=== PATIENT | male | born 1995 | race Caucasian/White ===

== ENCOUNTER 2017-02-04 08:32 | Emergency (ER) | payer OTHER ==
[~2017-02-04] VITALS: Ht 185.4 cm; Wt 70.3 kg
[2017-02-04] MEDS ORDERED: NS 1,000 ML IV SCH (08:49)
[2017-02-04] MEDS ORDERED: KETOROLAC 30 MG/ML VIAL (J1885) IV ONE (09:00)
[2017-02-04] MEDS ORDERED: NS 1,000 ML IV ONE (09:00)
[2017-02-04 09:27] LABS: BASO % 0.3 % (0.0-1.0); EOS # 0.2 K/mm3 (0.0-0.50); EOS % 1.6 % (0.0-3.0); LARGE UNSTAINED CELL # 0.1 K/mm3 (0.0-0.4); LYMPH # 1.3 K/mm3 (1.5-6.5); LYMPH % 10.3 % (24.0-44.0); MEAN CORPUSCULAR HEMOGLOBIN 29.3 pg (27.0-33.0); MEAN CORPUSCULAR HGB CONC 34.5 g/dl (32.0-36.5); MEAN CORPUSCULAR VOLUME 84.7 fl (80.0-96.0); MONO # 0.6 K/mm3 (0.0-0.8); NEUTROPHILS # 9.4 K/mm3 (1.8-7.7); NEUTROPHILS % 81.9 % (36.0-66.0); PLATELET COUNT, AUTOMATED 250 k/mm3 (150-450); RED CELL DISTRIBUTION WIDTH 12.3 % (11.5-14.5); WHITE BLOOD COUNT 11.5 K/mm3 (4.0-10.0)
[2017-02-04 10:00] LABS: ALBUMIN 3.9 GM/DL (3.2-5.2); ALKALINE PHOSPHATASE 93 U/L (45-117); ALT/SGPT 27 U/L (12-78); ANION GAP 13 MEQ/L (8-16); AST/SGOT 14 U/L (15-37); BILIRUBIN,DIRECT 0.1 MG/DL (0.0-0.2); BILIRUBIN,TOTAL 0.3 MG/DL (0.2-1.0); BLOOD UREA NITROGEN 15 MG/DL (7-18); CALCIUM LEVEL 8.5 MG/DL (8.5-10.1); CARBON DIOXIDE LEVEL 22 MEQ/L (21-32); CHLORIDE LEVEL 108 MEQ/L (98-107); CREATININE FOR GFR 1.21 MG/DL (0.70-1.30); GLUCOSE, FASTING 85 MG/DL (70-105); POTASSIUM SERUM 3.9 MEQ/L (3.5-5.1); SODIUM LEVEL 143 MEQ/L (136-145); TOTAL PROTEIN 6.9 GM/DL (6.4-8.2)
[2017-02-04 11:18] VITALS: BP 128/72
--- NOTE | 2017-02-04 11:22 | REP ---
ACUTE ABDOMINAL SERIES: 02/04/2017 CLINICAL HISTORY: No prior study, abdominal pain. FINDINGS: PA CHEST: Lungs are well inflated without infiltrate, effusion, atelectasis or mass. The heart, mediastinal and hilar contours are normal. Airway is intact. Bones unremarkable. No free air. FLAT UPRIGHT ABDOMEN: Scattered stool and gas in the colon without dilated loops, air-fluid levels, masses or free air. No abnormal calcifications. The bones are unremarkable. There is one pelvic phlebolith in the right deep pelvis. IMPRESSION: 1. PA chest with no acute cardiac pulmonary disease. 2. Negative for obstruction, mass, free air or other acute finding. Bowel gas pattern unremarkable. Bones intact. Signed by Enrike Bradley MD 02/04/2017 05:13 P
== END 2017-02-04 11:19 | disposition home or self-care (01) ==
LOC: M ED 08:54
DX: R10.9 Unspecified abdominal pain (principal)
CPT/HCPCS: 74022; 80048; 80076; 83690; 85025; 96361; 96374; 99282; J1885

== ENCOUNTER 2018-09-27 22:02 | Emergency (ER) | payer OTHER ==
[2018-09-27] MEDS: AUGMENTIN 875 MG TAB PO (23:24)
== END 2018-09-27 23:34 | disposition home or self-care (01) ==
LOC: M ED 22:02
DX: K08.89 Other specified disorders of teeth and supporting structures (principal); K02.9 Dental caries, unspecified
CPT/HCPCS: 99283

== ENCOUNTER → 2019-05-15 | Outpatient (CLI) | payer OTHER ==
[~2019-05-15] MED LIST: AUGM875T28 PO
--- NOTE | 2019-05-21 09:39 | SLEEPCENT ---
DATE OF PROCEDURE: 05/15/2019 ORDERED BY: Rocio Roach Nocturnal polysomnography was performed for evaluation of sleep physiology in this patient with difficulties in sleep continuity, excessive somnolence and nonrestorative sleep. 8 hours and 28 minutes of data were reviewed. There were 415 minutes of sleep identified. Sleep latency was normal at 9.5 minutes. Rapid eye movement (REM) latency was normal at 120 minutes. Sleep architecture was fairly good. Some mild fragmentation early in the study, but 5 REM cycles were noted. Overall sleep efficiency 83.2%. The electrocardiogram showed sinus rhythm with an average heart rate of 60 beats per minute. Rate ranged 40-92. Electroencephalogram (EEG) showed alpha intrusion throughout with no focal events. There were only 13 respiratory events identified of 10 seconds in duration or greater for an apnea-hypopnea index of 1.9. Some snoring was noted and the patient's respiratory related arousal index was 2.6. Some activity was noted in the limb leads, particularly early in the study. There were 2 trains of 30 events. Limb movement arousal index was borderline at 5.5. Oxygen saturations remained normal throughout the study. IMPRESSION: Normal nocturnal polysomnography with snoring and minimal limb activity.
== END ==
LOC: M SLEEP 19:29
PROVIDERS: ATTEND Nurse Practitioner Adult Health
DX: R40.0 Somnolence (principal); R06.83 Snoring

== ENCOUNTER 2019-07-14 19:27 | Emergency (ER) | payer OTHER ==
[~2019-07-14] VITALS: Ht 182.9 cm; Wt 75.9 kg
[2019-07-14] MEDS ORDERED: ESZO1TAB4 PO (19:45)
[2019-07-14] MEDS ORDERED: HYDR50TA70 PO (19:45)
[2019-07-14] MEDS ORDERED: TRAZ-186 PO (19:45)
[2019-07-14] MEDS ORDERED: RAME8TAB2 PO (19:45)
[2019-07-14] MEDS ORDERED: DOXE10CA PO (19:45)
[2019-07-14] MEDS ORDERED: MIRT1TAB PO (19:45)
[2019-07-14 20:12] LABS: BASO # 0.1 10^3/uL (0.0-0.2); BASO % 0.4 % (0.0-1.0); EOS # 0.1 10^3/uL (0.0-0.5); EOS % 0.7 % (0.0-3.0); HEMATOCRIT 44.5 % (42.0-52.0); HEMOGLOBIN 15.5 g/dl (13.5-17.5); LYMPH # 1.6 10^3/uL (1.5-5.0); LYMPH % 11.4 % (24.0-44.0); MEAN CORPUSCULAR HEMOGLOBIN 28.7 pg (27.0-33.0); MEAN CORPUSCULAR HGB CONC 34.8 g/dl (32.0-36.5); MEAN CORPUSCULAR VOLUME 82.4 fl (80.0-96.0); MONO # 0.6 10^3/uL (0.0-0.8); MONO % 4.6 % (0.0-5.0); NEUTROPHILS # 11.2 10^3/uL (1.5-8.5); NEUTROPHILS % 82.6 % (36.0-66.0); PLATELET COUNT, AUTOMATED 311 10^3/uL (150-450); WHITE BLOOD COUNT 13.6 10^3/uL (4.0-10.0)
[2019-07-14 20:57] LABS: ALBUMIN 4.4 GM/DL (3.2-5.2); BILIRUBIN,DIRECT 0.1 MG/DL (0.0-0.2); BILIRUBIN,TOTAL 0.4 MG/DL (0.2-1.0); BLOOD UREA NITROGEN 17 MG/DL (7-18); CALCIUM LEVEL 9.9 MG/DL (8.5-10.1); CARBON DIOXIDE LEVEL 26 MEQ/L (21-32); CHLORIDE LEVEL 102 MEQ/L (98-107); CREATININE FOR GFR 1.29 MG/DL (0.70-1.30); ETHYL ALCOHOL (ETHANOL) < 0.003 % (0.000-0.010); GLOMERULAR FILTRATION RATE > 60.0 (>60); GLUCOSE, FASTING 97 MG/DL (70-100); LIPASE 141 U/L (73-393); POTASSIUM SERUM 3.6 MEQ/L (3.5-5.1); SODIUM LEVEL 140 MEQ/L (136-145)
[2019-07-14 21:15] LABS: ALT/SGPT 58 U/L (12-78)
--- NOTE | 2019-07-14 22:27 | REPVR ---
EXAM: CT Head Without Contrast EXAM DATE/TIME: 07/14/2019 9:55 PM CLINICAL HISTORY: 24 years old, male; Pain; Headache; Additional info: HAYES TECHNIQUE: Imaging protocol: Computed tomography of the head without contrast. Radiation optimization: All CT scans at this facility use at least one of these dose optimization techniques: automated exposure control; mA and/or kV adjustment per patient size (includes targeted exams where dose is matched to clinical indication); or iterative reconstruction. COMPARISON: No relevant prior studies available. FINDINGS: Brain: Normal. No hemorrhage. Unremarkable white matter. No mass effect. Ventricles: Normal. No ventriculomegaly. Bones/joints: Unremarkable. No acute fracture. Sinuses: Visualized sinuses are unremarkable. No fluid levels. Mastoid air cells: Visualized mastoid air cells are well aerated. Soft tissues: Unremarkable. IMPRESSION: No acute intracranial abnormality. Electronically signed by: Harshil Fuentes On 07/14/2019 22:27:36 PM
[2019-07-14] MEDS ORDERED: KETOROLAC 30 MG/ML VIAL (J1885) IV ONE (22:45)
[2019-07-14 23:01] LABS: AMPHETAMINES LEVEL URINE NEGATIVE (NEGATIVE); BARBITURATES URINE NEGATIVE (NEGATIVE); BENZODIAZEPINES URINE NEGATIVE (NEGATIVE); CANNABINOIDS URINE NEGATIVE (NEGATIVE); COCAINE METABOLITE URINE NEGATIVE (NEGATIVE); METHADONE URINE NEGATIVE (NEGATIVE); OPIATES URINE NEGATIVE (NEGATIVE); PHENCYCLIDINE URINE NEGATIVE (NEGATIVE)
[2019-07-14 23:30] VITALS: BP 131/79
[2019-07-14] MEDS ORDERED: traMADol 50 MG TAB PO ONE (23:45)
== END 2019-07-14 23:49 | disposition home or self-care (01) ==
LOC: M ED 19:27
DX: G43.909 Migraine, unspecified, not intractable, without status migrainosus (principal); Z79.899 Other long term (current) drug therapy
CPT/HCPCS: 70450; 80048; 80076; 80307; 82140; 83690; 85025; 96374; 99284; G0480; J1885